=== PATIENT | female | born 2000 | race Hispanic/Latino ===

== ENCOUNTER 2019-11-25 12:42 | Emergency (ER) | payer SELFPAY ==
[~2019-11-25] VITALS: Ht 157.5 cm; Wt 49.9 kg
--- NOTE | 2019-11-25 13:49 | Emergency Department Note ---
History of Present Illnes History of Present Illness Chief Complaint: rgt 2nd toe pain swelling s/p fall off skate board History of Present Illness This is a 19 year old female. was doing well prior to this. Historian: Patient Arrival Mode: Car History limited by: condition of the patient (normal) Filer Metal Patterns Required: No Onset (how long ago): day(s) (3) Location: see above Quality: sharp Radiation: Reports non-radiation Severity: moderate Onset quality: sudden Duration (how long): day(s) (3) Timing of current episode: constant Progression: unchanged Chronicity: new Context: Reports trauma/injury; Denies recent illness, Denies recent surgery, Denies recent immobilization, Denies recent travel, Denies new medications, Denies hx of DVT/PE, Denies non- compliance w/ medications Relieving factors: rest Exacerbating factors: movement Associated symptoms: Reports denies other symptoms Treatments prior to arrival: none Past Medical/Family History Physician Review I have reviewed the patient's past medical and family history. Any updates have been documented here. Past Medical History Recent Fever: No Clinical Suspicion of Infectio: No New/Unexplained Change in Ment: No Past Medical History: None Past Surgical History: None Social History Smoking Cessation: Never Smoker Counseling Performed: No Any Illegal Drug Use: No TB Exposure/Symptoms: No Physically hurt or threatened: No Family History Family history of heart diseas: No Other Any Pre-Existing Lines (PICC,: No Is patient up to date on immun: No Review of Systems Review of Systems Constitutional: Reports no symptoms EENTM: Reports no symptoms Cardiovascular: Reports no symptoms Respiratory: Reports no symptoms Gastrointestinal: Reports no symptoms Genitourinary: Reports no symptoms Musculoskeletal: Reports as per HPI Integumentary: Reports no symptoms Neurological: Reports no symptoms Psychological: Reports no symptoms Endocrine: Reports no symptoms Hematological/Lymphatic: Reports no symptoms Review of other systems: All other systems negative Physical Exam Related Data Allergies: Coded Allergies: No Known Allergies (Unverified , 11/25/19) Vital signs reviewed: Yes Physical Exam CONSTITUTIONAL Constitutional: Present well-developed, Present well-nourished HENT HENT: Present normocephalic, Present atraumatic, Present oropharynx clear/moist, Present nose normal HENT L/R: Present left ext ear normal, Present right ext ear normal EYES Eyes: Reports PERRL, Reports conjunctivae normal NECK Neck: Present ROM normal, Present supple PULMONARY Pulmonary: Present effort normal, Present breath sounds normal CARDIOVASCULAR Cardiovascular: Present regular rhythm, Present heart sounds normal, Present capillary refill normal, Present normal rate GASTROINTESTINAL Abdominal: Present soft, Present nontender, Present bowel sounds normal GENITOURINARY Genitourinary: Present exam deferred SKIN Skin: Present warm, Present dry MUSCULOSKELETAL Musculoskeletal: Present tenderness (rgt 2nd toes/swelling/decrease farom), Present swelling NEUROLOGICAL Neurological: Present alert, Present oriented x 3, Present no gross motor or sensory deficits PSYCHOLOGICAL Psychological: Present mood/affect normal, Present judgement normal Results Imaging Imaging results reviewed: Yes Impressions [place] [id number] Patient Name: ROSEMARY HOBBS MR #: [id number] : 2000 Age/Sex: 19/F Req #: [id number] Adm Physician: Ordered by: ASHUTOSH BEYER Report #: [id number] Location: [facility] Room/Bed: Procedure: [id number] HOPD/TOES 2 OR MORE VIEW RT - HOPD Exam Date: Exam Time: REPORT STATUS: Signed Exam: TOES 2 OR MORE VIEW RT - HOPD History: Left second toe pain, fall from skateboard Comparison: None. Findings: No fractures of acute osseous abnormalities. No joint malalignment or dislocation. Mild soft tissue swelling of the second digit. Impression: 1. Mild soft tissue swelling of the second digit without acute osseous abnormality. Signed by: Dr. Stiven Kemp M.D. on 11/25/2019 2:28 PM Dictated By: STIVEN KEMP MD 27 COPY TO: ASHUTOSH BEYER~ Assessment & Plan Medical Decision Making MDM see below Assessment & Plan Final Impression: (1) Toe sprain Depart Disposition: HOME, SELF-longterm Meds Active Scripts Ibuprofen (IBUPROFEN) 600 Mg Tablet, 600 MG PO Q6H PRN for MODERATE PAIN (4-6), #30 TAB Prov:ASHUTOSH BEYER 11/25/19 ASHUTOSH BEYER Nov 25, 2019 13:49
[2019-11-25] MEDS ORDERED: IBUPROFEN 600 MG TAB PO NR (14:15)
--- NOTE | 2019-11-25 14:32 | Diagnostic Imaging Report ---
Exam: TOES 2 OR MORE VIEW RT - HOPD History: Left second toe pain, fall from skateboard Comparison: None. Findings: No fractures of acute osseous abnormalities. No joint malalignment or dislocation. Mild soft tissue swelling of the second digit. Impression: 1. Mild soft tissue swelling of the second digit without acute osseous abnormality. Signed by: Dr. Yuri White M.D. on 11/25/2019 2:28 PM
[2019-11-25] MEDS ORDERED: IBUPROFEN600 MG PO (15:06)
[2019-11-25] MEDS ORDERED: IBUPROFEN 600 MG TAB ONE (15:42)
== END 2019-11-25 15:53 | disposition home or self-care (01) ==
LOC: FSED 13:56
DX: S93.505A Unspecified sprain of left lesser toe(s), initial encounter (principal); Y93.51 Activity, roller skating (inline) and skateboarding; W17.89XA Other fall from one level to another, initial encounter; Z86.718 Personal history of other venous thrombosis and embolism
CPT/HCPCS: 99283